=== PATIENT | male | born 1935 | race Caucasian/White ===

== ENCOUNTER 2019-03-28 07:45 | Observation (INO) | payer MEDICARE, OTHER ==
[~2019-03-28] VITALS: Ht 175.3 cm; Wt 75.0 kg
[2019-03-28] MEDS ORDERED: PANT-47 PO (09:39)
[2019-03-28] MEDS ORDERED: CARB1TAB23 PO (09:39)
[2019-03-28] MEDS ORDERED: HYDR25TA4 PO (09:39)
[2019-03-28] MEDS ORDERED: PRAV20TA4 PO (09:39)
[2019-03-28] MEDS ORDERED: metoclopramide 5 mg/ml inj IV PRN (09:40)
[2019-03-28] MEDS ORDERED: magnesium hydroxide 30ml (MOM) UD suspension PO PRN (09:40)
[2019-03-28] MEDS ORDERED: acetaminophen 325mg tablet PO PRN ×2 (09:40)
[2019-03-28] MEDS ORDERED: magnesium 4gm in 100ml NS 100 ML IV PRN (09:40)
[2019-03-28] MEDS ORDERED: HYDROcodone/acetaminophen 10/325mg tab PO PRN (09:40)
[2019-03-28] MEDS ORDERED: HYDROcodone/acetaminophen 5mg/325mg tablet PO PRN (09:40)
[2019-03-28] MEDS ORDERED: magnesium Cl slow-release 64mg tablet PO PRN (09:40)
[2019-03-28] MEDS ORDERED: potassium CL 10mEq/100ml bag 100 ML IV PRN ×2 (09:40)
[2019-03-28] MEDS ORDERED: potassium Cl 20 mEq SR tablet PO PRN ×2 (09:40)
[2019-03-28] MEDS ORDERED: bisacodyl 10mg suppository rectal RC PRN (09:40)
[2019-03-28] MEDS ORDERED: ondansetron/PF 4mg/2ml inj IV PRN (09:40)
[2019-03-28] MEDS ORDERED: mag hydrox/Alum hydrox/simeth 30ml oral suspension PO PRN (09:40)
[2019-03-28] MEDS ORDERED: magnesium 2GM in 50ml NS 50 ML IV PRN (09:40)
[2019-03-28 09:48] LABS: CLARITY,URINE CLEAR (Clear); COLOR,URINE YELLOW (Yellow); GLUCOSE, URINE NEGATIVE (Neg); KETONES,URINE NEGATIVE (Neg); LEUKOCYTE ESTERASE ,URINE NEGATIVE (Neg); NITRITES, URINE NEGATIVE (Neg); OCCULT BLOOD,URINE NEGATIVE (Neg); PH,URINE 5.5 (4.8-8.0); PROTEIN,URINE NEGATIVE (Neg); UROBILINOGEN,URINE 0.2 E.U/dL (0.2-1.0)
[2019-03-28 09:51] LABS: UA COLLECTION TYPE VOIDED
[2019-03-28] MEDS ORDERED: ACET-812 PO ×2 (09:55)
[2019-03-28] MEDS ORDERED: MELO-100 PO (09:55)
[2019-03-28] MEDS ORDERED: TRAM50TA2 PO (09:55)
[2019-03-28] MEDS ORDERED: KEN0.1O TP (09:55)
[2019-03-28] MEDS ORDERED: DIPH1TAB PO (09:55)
[2019-03-28] MEDS ORDERED: FLO0.4C PO (09:55)
[2019-03-28] MEDS ORDERED: CHOL2000 PO (09:55)
[2019-03-28] MEDS ORDERED: FLUT100D2 INH (09:55)
[2019-03-28 10:13] LABS: BASOPHILS # (AUTO) 0.1 X10'3 (0-0.2); BASOPHILS % (AUTO) 0.8 % (0-1); EOSINOPHILS # (AUTO) 0.3 X10'3 (0-0.9); EOSINOPHILS % (AUTO) 2.3 % (0-6); HEMATOCRIT 39.4 % (42.0-52.0); HEMOGLOBIN 13.1 g/dl (14.0-17.9); LYMPHOCYTES # (AUTO) 2.3 X10'3 (1.1-4.8); LYMPHOCYTES % (AUTO) 19.1 % (21-51); MEAN CORPUSCULAR HGB CONC 33.3 g/dL (33.0-36.5); MEAN CORPUSCULAR VOLUME 96.1 FL (78-98); MEAN PLATELET VOLUME 7.2 FL (7.4-10.4); MONOCYTES # (AUTO) 0.9 X10'3 (0-0.9); MONOCYTES % (AUTO) 7.7 % (2-12); NEUTROPHILS # (AUTO) 8.4 X10'3 (1.8-7.7); NEUTROPHILS % (AUTO) 70.1 % (42-75); PLATELET COUNT 323 X10'3 (140-440); RED CELL DISTRIBUTION WIDTH 13.3 % (11.5-14.5); WHITE BLOOD COUNT 11.9 X10'3 (4.5-11.0)
[2019-03-28 10:33] LABS: PARTIAL THROMBOPLASTIN TIME 33 SECONDS (22-32)
[2019-03-28 10:41] LABS: ALANINE AMINOTRANSFERASE 24 U/L (12-78); ALBUMIN 3.9 G/DL (3.4-5.0); ALKALINE PHOSPHATASE 103 IU/L (46-116); ANION GAP 10 (8-16); ASPARTATE AMINO TRANSFERASE 17 U/L (10-37); BILIRUBIN,TOTAL 0.6 MG/DL (0.1-1.0); BLOOD UREA NITROGEN 29 MG/DL (7-18); BUN/CREATININE RATIO 23.8 (5.4-32.0); CALCIUM 9.6 MG/DL (8.5-10.1); CHLORIDE 102 MMOL/L (99-107); CREATININE 1.22 MG/DL (0.60-1.10); GLUCOSE 89 MG/DL (70-104); POTASSIUM 4.2 MMOL/L (3.5-5.1); SODIUM 137 MMOL/L (135-145); TOTAL CARBON DIOXIDE 25.3 MMOL/L (24-32); TOTAL PROTEIN 7.8 G/DL (6.4-8.2); eGFR 57 ML/MIN
[2019-03-28 11:52] VITALS: BP 165/85
[2019-03-28] MEDS: normal saline 1000ml 1,000 ML IV SCH ×2 (12:11→19:39)
[2019-03-28 16:00] VITALS: BP 160/73
[2019-03-28] MEDS: carbidoba-levodopa 25-100mg tablet PO SCH ×2 (17:54→23:08)
[2019-03-28 18:00] VITALS: BP 136/61
--- NOTE | 2019-03-28 18:30 | NUR ---
Patient in room [facility] 4008. I have received report from SHAVON Randle and had the opportunity to ask questions and assume patient care.
--- NOTE | 2019-03-28 18:34 | NUR ---
Patient report given to Nakia SANDS
[2019-03-28] MEDS ORDERED: FLUTICASONE PROPIONATE INH SCH (20:00)
[2019-03-28] MEDS: budesonide 0.5mg/2ml UD nebule IH SCH (20:06)
[2019-03-28] MEDS ORDERED: tamsulosin 0.4mg capsule PO SCH (21:00)
[2019-03-28 22:00] VITALS: BP 158/71
[2019-03-29 02:00] VITALS: BP 115/58
[2019-03-29] MEDS: normal saline 1000ml 1,000 ML IV SCH (02:50)
[2019-03-29 06:00] VITALS: BP 144/68
--- NOTE | 2019-03-29 06:00 | NUR ---
Problems reprioritized. Patient report given, questions answered & plan of care reviewed with SHAVON Helm.
--- NOTE | 2019-03-29 06:05 | NUR ---
Patient in room [facility]TH[facility] 4008. I have received report from NELLIE SANDS and had the opportunity to ask questions and assume patient care.
[2019-03-29 06:08] LABS: BASOPHILS # (AUTO) 0.1 X10'3 (0-0.2); BASOPHILS % (AUTO) 0.9 % (0-1); EOSINOPHILS # (AUTO) 0.3 X10'3 (0-0.9); HEMATOCRIT 32.1 % (42.0-52.0); LYMPHOCYTES # (AUTO) 1.9 X10'3 (1.1-4.8); LYMPHOCYTES % (AUTO) 21.7 % (21-51); MEAN CORPUSCULAR HEMOGLOBIN 32.8 PG (27.0-31.0); MEAN CORPUSCULAR HGB CONC 34.2 g/dL (33.0-36.5); MEAN CORPUSCULAR VOLUME 95.9 FL (78-98); MEAN PLATELET VOLUME 7.2 FL (7.4-10.4); MONOCYTES # (AUTO) 0.8 X10'3 (0-0.9); MONOCYTES % (AUTO) 9.6 % (2-12); NEUTROPHILS # (AUTO) 5.7 X10'3 (1.8-7.7); NEUTROPHILS % (AUTO) 64.8 % (42-75); PLATELET COUNT 261 X10'3 (140-440); RED BLOOD COUNT 3.35 X10'6 (4.70-6.10); RED CELL DISTRIBUTION WIDTH 13.1 % (11.5-14.5); WHITE BLOOD COUNT 8.8 X10'3 (4.5-11.0)
[2019-03-29 06:26] LABS: ALBUMIN 2.8 G/DL (3.4-5.0); ANION GAP 7 (8-16); BLOOD UREA NITROGEN 27 MG/DL (7-18); CALCIUM 8.1 MG/DL (8.5-10.1); CHLORIDE 106 MMOL/L (99-107); CHOL/HDL RATIO 3.9 (0.00-4.99); CHOLESTEROL 128 MG/DL (0-200); GLUCOSE 96 MG/DL (70-104); HDL CHOLESTEROL 33 MG/DL (35-60); LDL CHOLESTEROL 68 MG/DL (50-100); MAGNESIUM 1.7 MG/DL (1.5-2.4); PHOSPHORUS 3.3 MG/DL (2.3-4.5); SODIUM 139 MMOL/L (135-145); TOTAL CARBON DIOXIDE 25.9 MMOL/L (24-32); TRIGLYCERIDES 194 MG/DL (20-135); eGFR 71 ML/MIN
[2019-03-29] MEDS: carbidoba-levodopa 25-100mg tablet PO SCH ×2 (07:43→13:27)
[2019-03-29] MEDS: traMADol 50MG tablet PO PRN ×2 (07:44→13:28)
[2019-03-29] MEDS ORDERED: pravastatin 40mg tablet PO SCH (08:00)
[2019-03-29] MEDS ORDERED: K and/or MAG REPLACEMENT MC SCH (08:00)
[2019-03-29] MEDS ORDERED: non-formulary drug (Pravastatin Sodium 1 TAB) PO SCH (08:00)
[2019-03-29] MEDS ORDERED: pantoprazole 40mg Tablet.DR PO SCH (08:00)
[2019-03-29] MEDS ORDERED: aspirin 325mg tablet PO SCH (08:30)
[2019-03-29] MEDS: budesonide 0.5mg/2ml UD nebule IH SCH (09:00)
[2019-03-29 10:00] VITALS: BP 112/64
[2019-03-29] MEDS ORDERED: ASPI81TA52 PO (12:15)
[2019-03-29 14:00] VITALS: BP 125/68
--- NOTE | 2019-03-29 14:30 | NUR ---
PATIENT DISCHARGED HOME SAFELY WITH FAMILY. ALL BELONGINGS IN POSSESSION. PATIENT WAS SENT WITH IMAGING STUDIES ON DISC FOR HIS PCP. PATIENT VERBALIZES UNDERSTANDING OF ALL DC INSTRUCTIONS.
== END 2019-03-29 14:39 | disposition home or self-care (01) ==
LOC: ER 07:46 → ORTHO 4S 10:13
PROVIDERS: ADMIT Family Medicine; ATTEND Family Medicine
DX: I63.9 Cerebral infarction, unspecified (principal); D64.9 Anemia, unspecified; E78.5 Hyperlipidemia, unspecified; G20 Parkinson's disease; K29.70 Gastritis, unspecified, without bleeding; N40.0 Benign prostatic hyperplasia without lower urinary tract symptoms; N17.9 Acute kidney failure, unspecified; I12.9 Hypertensive chronic kidney disease with stage 1 through stage 4 chronic kidney disease, or unspecified chronic kidney disease; N18.9 Chronic kidney disease, unspecified; Z90.49 Acquired absence of other specified parts of digestive tract
CPT/HCPCS: 36415; 80048; 80053; 80061; 81003; 83735; 84100; 84443; 85025; 85610; 85730; 87081; 92508; 92526; 92616; 93005; 93306; 93880; 94640; 94760; 97110; 97116; 97163; 99284; G0378; J7030; J7626